=== PATIENT | female | born 1970 | race Caucasian/White ===

== ENCOUNTER → 2018-02-16 | Outpatient (CLI) | payer OTHER | END | disposition home or self-care (01) | LOC: KCIC MAMMO 15:15 | DX: Z12.31 Encounter for screening mammogram for malignant neoplasm of breast (principal) | CPT/HCPCS: 77063; 77067 ==

== ENCOUNTER → 2021-06-09 | Outpatient (CLI) | payer OTHER ==
--- NOTE | 2021-06-09 14:24 | KCIC ---
EXAM: Bilateral digital screening mammogram with tomosynthesis. HISTORY: 50 year-old female presents for screening mammography. TECHNIQUE: Full-field digital craniocaudal and mediolateral oblique 2D and 3D tomosynthesis images of both breasts are obtained for evaluation. Computer aided detection was applied. COMPARISON: 02/16/2018 BREAST PARENCHYMAL DENSITY: Level B - Scattered fibroglandular densities. FINDINGS: There has been interval increase in the size of right axillary lymph nose. There is a stabl e nodule within the posterior lateral right breast which is likely an intramammary lymph node. There are stable areas of nodularity and asymmetry within both breasts. There is no suspicious calcificatio n or architectural distortion. IMPRESSION: BI-RADS Category 0: Incomplete. Additional imaging needed. RECOMMENDATION: Sonographic imaging of the right axilla is recommended to assess increasing lymph nod es. These may be reactive in etiology. Correlate for possible etiologies such as recent upper extremi ty Covid-19 vaccination. If your mammogram demonstrates that you have dense breast tissue, which could hide abnormalities, and if you have other risk factors for breast cancer that have been identified, you might benefit from s upplemental screening tests that may be suggested by your ordering physician. Dense breast tissue, i n and of itself, is a relatively common condition. This information is not provided to cause undue c oncern, but rather to raise your awareness and to promote discussion with your physician regarding th e presence of other risk factors, in addition to dense breast tissue. A report of your mammography re sults will be sent to you and your physician. You should contact your physician if you have any ques tions or concerns regarding this report. Mammography is a sensitive method for finding small breast cancers, but it does not detect them all a nd is not a substitute for careful clinical examination. A negative mammogram does not negate a clin ically suspicious finding and should not result in delay in biopsying a clinically suspicious abnorma lity. PQRS compliance statement - Patient information was entered into a reminder system with a target due date for the next mammogram. "Our facility is accredited by the [employer] Mammography Program." Electronically signed by: Usha Valdivia MD (06/09/2021 2:22 PM) [id number]
--- NOTE | 2021-06-09 14:45 | KCIC ---
EXAM: DUAL ENERGY X-RAY ABSORPTIOMETRY (DEXA). HISTORY: Postmenopausal screening. FINDINGS: The lowest measured T-score is 1.5 in the lumbar spine, based on a bone mineral density of 1.216 g/cm^2. Refer to the worksheets for full detail. No comparison examinations are available. IMPRESSION: Normal. Bone mineral density yields a T-score of -1.0 or greater. Fracture risk is low. FRAX was not calculated. METHODOLOGY: Dual energy x-ray absorptiometry was performed to measure bone mineral density. The foll owing analysis is based on the 2019 Official Positions of the International Society for Clinical Dens itometry: Measurements of the hips and the average of L1-L4 are preferred. When the spine and/or hip cannot be feasibly measured or interpreted, or in the setting of hyperparathyroidism, distal radial bone minera l density may be measured. The lumbar spine T-score is based on the average bone mineral density of L1-L4. In the setting of art ifact or anatomic abnormality, some lumbar levels may be excluded, and the remaining levels used for calculation. A single lumbar level is not used for diagnosis, and if only a single level is available for assessment, another anatomic site will be used to assign a diagnosis. The hip T-score is based on the bone mineral density measurement of the femoral neck or total proxima l femur of either side, whichever is lowest. Bilateral mean values are not used for diagnosis. The forearm T-score is derived from 33% of the distal radius of the nondominant forearm. For postmenopausal and perimenopausal women, and men age 50 or older, of all ethnic groups, T-scores are calculated through comparison of the current measurement with the NHANES III database standard fo r females aged 20-29 years. The lowest T-score of the evaluated anatomic sites is used to a ssign a diagnosis based on the World Health Organization densitometric classification. In premenopausal females and males younger than age 50, a Z-score is calculated based on population s pecific reference data for patient sex and self-reported ethnicity. Electronically signed by: Cintia Mtz MD (06/09/2021 2:42 PM) [id number]
--- NOTE | 2021-06-09 14:46 | KCIC ---
EXAM: LUMBAR SPINE 3 VIEWS. HISTORY: Low back pain. COMPARISON: None. FINDINGS: There is a minimal upper lumbar dextrocurvature. Vertebral body heights are maintained, and no fractures are identified. Endplate remodeling indicates mild degenerative disc disease at L3-4. I ntervertebral disc heights are preserved. Facet osteoarthritis appears at least moderate from L3 thro ugh S1 on the right greater than left. IMPRESSION: 1. Mild degenerative disc disease at L3-4. 2. Lower lumbar facet osteoarthritis on the right greater than left. Electronically signed by: Cintia Mtz MD (06/09/2021 2:43 PM) [id number]
== END ==
LOC: KCIC MAMMO 13:15
PROVIDERS: ATTEND Family Medicine
DX: Z12.31 Encounter for screening mammogram for malignant neoplasm of breast (principal); M51.36 Other intervertebral disc degeneration, lumbar region; M47.816 Spondylosis without myelopathy or radiculopathy, lumbar region; E89.40 Asymptomatic postprocedural ovarian failure
CPT/HCPCS: 72100; 77063; 77067; 77080

== ENCOUNTER → 2021-06-18 | Outpatient (CLI) | payer OTHER ==
--- NOTE | 2021-06-18 13:47 | KCIC ---
EXAMINATION: US ABDOMEN LIMITED 06/18/2021 8:56 AM INDICATION: Abdominal wall mass TECHNIQUE: Limited Cohen scale and color Doppler ultrasound images of the right anterior abdominal wal l in the area of concern. COMPARISON: None. FINDINGS: No evidence of soft tissue mass, fluid collection, or abdominal wall hernia in the area of concern. IMPRESSION: No sonographic abnormality in the abdominal wall in the area of concern. Electronically signed by: Angelic Boyer MD (06/18/2021 1:45 PM) [id number]
--- NOTE | 2021-06-18 16:33 | KCIC ---
US EXT NON VASC RIGHT History: Lump in right axilla Comparison: None. Technique: Sonographic examination of the right axilla. Findings: Patient unable to identify any discrete lumps at time of examination. There are a few normal-appearin g lymph nodes which maintain normal and uniform cortex and fatty hilum. No masses or cysts identified . Impression: 1. Normal right axillary lymph nodes. No mass or cyst identified. Note patient unable to identify a discrete lump of concern. Electronically signed by: Chip Vora MD (06/18/2021 4:31 PM) [facility]
== END ==
LOC: KCIC US 08:54
PROVIDERS: ATTEND Family Medicine
DX: R22.2 Localized swelling, mass and lump, trunk (principal)
CPT/HCPCS: 76705; 76881

== ENCOUNTER → 2021-07-15 | Outpatient (CLI) | payer OTHER ==
--- NOTE | 2021-07-15 11:29 | KCIC ---
EXAM: ULTRASOUND ABDOMEN COMPLETE CLINICAL HISTORY: Reason: ABD PAIN UNSPECIFIED / Spl. Instructions: / History: COMPARISON: None available. TECHNIQUE: Ultrasound of the upper abdomen was performed. FINDINGS: The head and body of the pancreas are unremarkable. The tail is obscured by intestinal gas.. The liver measures 14.1 cm in length in the right mid clavicular line. The hepatic margin is smooth and the hepatic echogenicity is normal. There are no focal liver lesions. Flow seen within the minesh l veins. The gallbladder is normal in appearance without evidence for cholelithiasis. There is no wall thicke camden or pericholecystic fluid. There is no pain with direct transducer pressure over the gallbladder . The common bile duct measures 0.4 cm. The spleen measures 8.2 cm not well visualized.. The right kidney measures 10.3 cm in bipolar length. Normal renal cortical echotexture and thickness. No focal renal lesion, hydronephrosis or shadowing renal calculus. The left kidney measures 10 cm in bipolar length. Normal renal cortical echotexture and thickness. No focal renal lesion, hydronephrosis or shadowing renal calculus. Visualized portions of the abdominal aorta and inferior vena cava are unremarkable. There is no free fluid in the upper abdomen. IMPRESSION: Normal sonographic survey of the upper abdomen. Electronically signed by: Sj Heredia MD (07/15/2021 11:27 AM) [id number]
--- NOTE | 2021-07-15 12:05 | KCIC ---
EXAM: CT LOW-DOSE LUNG SCREENING CLINICAL HISTORY: Reason: SMOKER, LUNG CANCER SCREENING / Spl. Instructions: / History: Smoker 30+ y rs., 1 pk/day. No breathing complaints. COMPARISON: None available. TECHNIQUE: Noncontrast helical low-dose CT chest per standard departmental protocol. PQRS compliance statement - One or more of the following individualized dose reduction techniques wer e utilized for this study: 1. Automated exposure control 2. Adjustment of the mA and/or kV according to patient size 3. Use of iterative reconstruction technique FINDINGS: Lung screening specific (LUNG-RADS): No suspicious lung nodule or mass. Potentially significant incidental findings (LUNG-RADS category S): Subcutaneous soft tissue tissue i nfiltration of the posterolateral aspect of the right chest wall just caudal to the scapula. Other incidental findings: None RECOMMENDATIONS/ IMPRESSION: 1. LUNG-RADS category: 1. Recommend 12 month low-dose CT per ACR guidelines. 2. LUNG-RADS category S: Subcutaneous soft tissue tissue infiltration of the posterolateral aspect of the right chest wall just caudal to the scapula. 3. Other incidental findings as above. LUNG-RADS category recommendations: Category 1: Surveillance scan in 12 months per ACR guidelines Category 2: Surveillance scan in 12 months per ACR guidelines Category 3: Multidisciplinary consultation in the Lung Cancer Screening Clinic. The Lung Cancer Scre maco coordinator will contact the patient to set up an appointment for further evaluation per ACR g uidelines Category 4: Multidisciplinary consultation in the Lung Cancer Screening Clinic. The Lung Cancer Screino hannah coordinator will contact the patient to set up an appointment for further evaluation per ACR gu idelines Category S: Clinically significant or potentially significant findings Category C: Patient with prior diagnosis of lung cancer who returns to screening Category O: Prior chest CT being located for comparison; part or all of lungs cannot be evaluated Electronically signed by: Sj Heredia MD (07/15/2021 12:02 PM) [id number]
== END ==
LOC: KCIC US 08:55
PROVIDERS: ATTEND Family Medicine
DX: Z12.2 Encounter for screening for malignant neoplasm of respiratory organs (principal); F17.200 Nicotine dependence, unspecified, uncomplicated; F31.9 Bipolar disorder, unspecified; R10.9 Unspecified abdominal pain
CPT/HCPCS: 71271; 76700